=== PATIENT | male | born 1970 | race African-American/Black ===

== ENCOUNTER 2021-07-14 12:34 | Emergency (ER) | payer SELFPAY ==
[2021-07-14 12:35] VITALS: BP 157/88; PULSE 83; RESP 20; TEMP 36.4; O2SAT 98; BMI 34.1
[2021-07-14 12:39] VITALS: O2SAT 97
--- NOTE | 2021-07-14 12:39 | EKG12_ITS ---
Test Reason : CP Blood Pressure : / mmHG Vent. Rate : 072 BPM Atrial Rate : 072 BPM P-R Int : 164 ms QRS Dur : 106 ms QT Int : 398 ms P-R-T Axes : 060 -11 074 degrees QTc Int : 435 ms Sinus rhythm with frequent Premature ventricular complexes Incomplete left bundle branch block Confirmed by JAHAIRA LINK, MG ([id number]), manager editorial MARCEL SCHAFER ([id number]) on 07/17/2021 10:49:41 AM Referred By: JOSEPH Confirmed By:MG CAMPO MD
--- NOTE | 2021-07-14 12:45 | ED.VIS.CHEST ---
HPI History of Present Illness Chief Complaint: Chest Pain Narrative Narrative: 50-year-old male presenting with palpitations and lightheadedness. He states he was walking across a parking lot when he started to feel palpitations and his heart racing. He felt a little bit lightheaded. He then experienced chest pressure which lasted a few minutes. He finished what he was doing and sat in his truck for half an hour until he felt a little better. As he started driving he started feeling nauseous. Patient denies any specific cardiac history. Patient states he was worked up for chest pain in November and had a negative work-up. 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 PFSH PFSH Home Medications Xarelto 20 mg PO/SL DAILY 07/14/21 [History Last Taken Unknown] amlodipine 10 mg PO/SL DAILY 07/14/21 [History Last Taken Unknown] glyburide 5 mg PO/SL BID 07/14/21 [History Last Taken Unknown] lisinopril 40 mg PO/SL DAILY 07/14/21 [History Last Taken Unknown] metformin 850 mg PO/SL BID 07/14/21 [History Last Taken Unknown] metoprolol succinate 100 mg PO/SL DAILY 07/14/21 [History Last Taken Unknown] Allergy/AdvReac Type Severity Reaction Status Date / Time No Known Allergies Allergy Verified 07/14/21 12:38 Social History Smoking Status: Never smoker [facility] ED Constitutional Constitutional ED: Denies chills, fever(s) or sweats Eyes Eyes: Denies blurry vision or change in vision ENT ENT ED: Denies rhinorrhea or sore throat Cardiovascular Cardiovascular: Reports as per HPI Respiratory/Chest Respiratory/Chest: Denies cough or dyspnea Gastrointestinal Gastrointestinal: Denies abdominal pain, nausea or vomiting Genitourinary Genitourinary ED: Denies dysuria or hematuria Musculoskeletal Musculoskeletal: Denies arthralgias or myalgias Integumentary Denies abscess or rash Neurologic Neurologic: Denies headache(s) or weakness Psychiatric Psychiatric: Denies anxiety or depression EXAM Physical Exam Const Vital Signs: 07/14/21 12:35 07/14/21 12:38 07/14/21 12:39 Temperature 97.6 F L Temperature Source Temporal Pulse Rate 83 Respiratory Rate 20 H Respiratory Effort Normal Blood Pressure 157/88 H Blood Pressure Mean 111 Pulse Ox 98 97 Oxygen Delivery Method Room Air Room Air 07/14/21 13:27 07/14/21 13:29 07/14/21 14:27 Temperature Temperature Source Pulse Rate 64 62 Respiratory Rate 15 97 H Respiratory Effort Normal Blood Pressure 175/97 H 165/89 H Blood Pressure Mean 123 114 Pulse Ox 98 11 Oxygen Delivery Method Room Air Room Air 07/14/21 15:01 Temperature Temperature Source Pulse Rate 61 Respiratory Rate Respiratory Effort Blood Pressure 176/96 H Blood Pressure Mean 122 Pulse Ox 97 Oxygen Delivery Method Positive well nourished General Appearance ED: NAD; Negative for pallor HEENT Reports moist mucous membranes normocephalic and atraumatic Eyes PERRL and EOMs intact bilaterally Chest Wall inspection of chest normal and palpation of chest normal Resp normal respiratory effort Effort and Inspection: respiratory distress Cardio regular rate and regular rhythm Extremity normal to inspection General Extremety ED: Negative for edema or tenderness General Extremity: Negative for edema Neuro oriented x3 Sensorium / Orientation: awake and alert Psych mental status grossly normal Skin no rashes or lesions noted General Skin Exam: Negative for jaundice or pallor Heart Score History: Slightly/Non-Suspicious ECG: Normal Age: >45 - <65 years Risk Factors: No Risk Factors Troponin: </= Normal Limit Score: 1 MDM MDM MDM Narrative Medical decision making narrative: Patient presenting with palpitations and a little bit of pressure pressure. He states that the symptoms only lasted a few minutes but then he sat and rested for 30 minutes and now feels improved. 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 He had a recent stress this year which he states was a chemical stress test. He states that they only noted that he had PVCs. He was referred to a press setup operator where he lives in [place]. 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 Patient has a history of hypertension, diabetes, DVT and is anticoagulated on Xarelto. I did initially order a D-dimer because he did not tell me he was on Xarelto and this is negative. Since he is anticoagulated I do not believe he needs a CTA. CBC is within normal limits. BMP is unremarkable. High-sensitivity troponin initially is 19. Delta troponin is 16. I feel this effectively rules out for ACS. Given negative work-up I think patient can be discharged home and follow-up with his press setup operator and [place]. Impression: 1. Chest pain 2. Palpitations Lab Data Attestation: I reviewed the patient's lab results. Labs: Laboratory Results - last 24 hr 07/14/21 07/14/21 07/14/21 12:45 12:45 12:45 WBC 9.5 RBC 4.55 L Hgb 13.8 Hct 42.7 MCV 93.8 MCH 30.3 MCHC 32.3 RDW Std Deviation 39.5 RDW Coeff of Ezekiel 11.5 L Plt Count 222 MPV 11.7 Immature Gran % (Auto) 0.300 Neut % (Auto) 81.3 H Lymph % (Auto) 10.3 L Terrell % (Auto) 6.7 Eos % (Auto) 1.1 Baso % (Auto) 0.3 Absolute Neuts (auto) 7.7 Absolute Lymphs (auto) 0.98 Nucleated RBC % 0 D-Dimer Quant (PE/DVT) 0.44 Sodium 138 Potassium 3.8 Chloride 104 Carbon Dioxide 27.0 Anion Gap 7 BUN 15 Creatinine 1.30 Estim Creat Clear Calc 90.10 Est GFR (MDRD) Af Amer 75 Est GFR (MDRD) Non-Af 62 BUN/Creatinine Ratio 11.5 Glucose 161 H Calcium 9.2 Troponin I High Sens 19 07/14/21 14:45 WBC RBC Hgb Hct MCV MCH MCHC RDW Std Deviation RDW Coeff of Ezekiel Plt Count MPV Immature Gran % (Auto) Neut % (Auto) Lymph % (Auto) Terrell % (Auto) Eos % (Auto) Baso % (Auto) Absolute Neuts (auto) Absolute Lymphs (auto) Nucleated RBC % D-Dimer Quant (PE/DVT) Sodium Potassium Chloride Carbon Dioxide Anion Gap BUN Creatinine Estim Creat Clear Calc Est GFR (MDRD) Af Amer Est GFR (MDRD) Non-Af BUN/Creatinine Ratio Glucose Calcium Troponin I High Sens 16 Radiography Diagnostic Testing: Clinical Impression(s) from Imaging Studies Chest X-Ray 07/14/21 12:50 IMPRESSION: Normal x-ray examination of the chest. Electronically Signed: Antonio Rodriguez MD at 13:09 EST , Service support , Discharge Plan Triage Chief Complaint: Chest Pain ED Provider: Kristofer Ca Dx/Rx/DC Orders Instructions: PVCs, ED Chest Pain, Noncardiac Prescriptions: No Action Xarelto 20 mg PO/SL DAILY RF: 0 amlodipine 10 mg PO/SL DAILY RF: 0 glyburide 5 mg PO/SL BID RF: 0 lisinopril 40 mg PO/SL DAILY RF: 0 metformin 850 mg PO/SL BID RF: 0 metoprolol succinate 100 mg PO/SL DAILY RF: 0 Referrals: Kalpana Metcalf [Other] Disposition Disposition: Home, Self Care
--- NOTE | 2021-07-14 12:50 | RAD_ITS ---
STUDY: X-RAY CHEST REASON FOR EXAM: Male, 50 years old. Chest heaviness with shortness of breath and tachycardia. TECHNIQUE: Single AP portable view of the chest. COMPARISON: None. FINDINGS: EKG electrodes are seen. The lungs are clear and expanded. There is no demonstrated pleural abnormality. Normal size heart. Normal mediastinum and chiqui. Normal visualized pulmonary arteries. Normal visualized aortic arch and descending thoracic aorta. Normal visualized thoracic spine. Normal visualized ribs, clavicles, and shoulders. There is no demonstrated abnormality of the visualized soft tissue structures of the upper abdomen. RAD/Chest 1 View (Portable) IMPRESSION: Normal x-ray examination of the chest. Electronically Signed: Antonio Rodriguez MD at 13:09 EST , Service support ,
[2021-07-14 12:58] LABS: Absolute Lymphocyte Count 0.98 X10^3/uL (0.83-4.51); Absolute Neutrophil Count 7.7 X10^3/uL (2.0-7.7); Basophil# 0.03 X10^3/uL; Basophil% 0.3 % (0-1); Eosinophils% 1.1 % (0-5); Hematocrit 42.7 % (40-54); Hemoglobin 13.8 g/dL (13.0-16.5); Lymphocyte # 0.98 X10^3/ul (0.83-4.51); Lymphocyte % 10.3 % (19-41); Mean Corp Hgb Conc 32.3 g/dL (32-36); Mean Corpuscular Hgb 30.3 pg (27.0-32.0); Mean Corpuscular Volume 93.8 fL (80-94); Mean Platelet Vol. 11.7 fl (6.2-12.0); Monocyte# 0.63 X10^3/uL; Monocyte% 6.7 % (0-10); NRBC Flagged by Analyzer 0 % (0-5); Neutrophil % 81.3 % (47-70); Platelet Count 222 K/mm3 (150-450); RBC Distribution Width CV 11.5 % (11.6-14.6); RBC Distribution Width SD 39.5 fl (35.1-43.9); Red Blood Count 4.55 M/mm3 (4.6-6.2); White Blood Count 9.5 K/mm3 (4.4-11.0)
[2021-07-14 13:04] LABS: D-Dimer Quantitative (DVT/PE) 0.44 FEU/ug/m (0.27-0.49)
[2021-07-14 13:10] LABS: Anion Gap 7 (5-15); BUN 15 mg/dL (7-18); BUN/Creat Ratio 11.5 RATIO (10-20); Calcium,Total 9.2 mg/dL (8.5-10.1); Chloride 104 mmol/L (98-107); EST Glomerular Filtration Rate 62 mL/min (>60); Est Glom Filt Rate - Afr Amer 75 mL/min (>60); Glucose 161 mg/dL (74-106); Potassium 3.8 mmol/L (3.5-5.1); Sodium Level 138 mmol/L (136-145); Troponin-I HS 19 pg/mL (3.0-78.0)
[2021-07-14 13:29] VITALS: BP 175/97; PULSE 64; RESP 15; O2SAT 98
[2021-07-14 14:27] VITALS: BP 165/89; PULSE 62; RESP 97; O2SAT 11
[2021-07-14 15:01] VITALS: BP 176/96; PULSE 61; O2SAT 97
[2021-07-14 15:12] LABS: Troponin-I HS 16 pg/mL (3.0-78.0)
[2021-07-14 15:36] VITALS: BP 158/112; PULSE 64
== END 2021-07-14 15:37 | disposition home or self-care (01) ==
PROVIDERS: Emergency Provider Student in an Organized Health Care Education/Training Program
DX: R07.89 Other chest pain (principal); R00.2 Palpitations; R42 Dizziness and giddiness; Z79.01 Long term (current) use of anticoagulants; Z79.84 Long term (current) use of oral hypoglycemic drugs; Z79.899 Other long term (current) drug therapy; Z86.718 Personal history of other venous thrombosis and embolism
CPT/HCPCS: 71045; 80048; 84484; 85025; 85379; 93005; 99285; A4216